=== PATIENT | female | born 1975 | race Caucasian/White ===

== ENCOUNTER 2021-04-05 12:33 | Emergency (ER) | payer SELFPAY ==
[~2021-04-05] VITALS: Ht 170.2 cm; Wt 80.0 kg
[2021-04-05 12:34] VITALS: BP 106/57
[2021-04-05] MEDS ORDERED: IBUP-2029 MT (13:52)
[2021-04-05] MEDS ORDERED: ACETAMINOPHEN 325MG TABLET PO ONE (14:00)
== END 2021-04-05 14:23 | disposition home or self-care (01) ==
LOC: ER 12:33
DX: S80.02XA Contusion of left knee, initial encounter (principal); M54.5 Low back pain; R03.0 Elevated blood-pressure reading, without diagnosis of hypertension; W01.198A Fall on same level from slipping, tripping and stumbling with subsequent striking against other object, initial encounter; Y93.01 Activity, walking, marching and hiking; Y92.89 Other specified places as the place of occurrence of the external cause; Y99.0 Civilian activity done for income or pay
CPT/HCPCS: 73562; 81025; 99283